=== PATIENT | female | born 1995 | race Caucasian/White ===

== ENCOUNTER 2019-12-29 19:34 | Emergency (ER) | payer OTHER ==
[2019-12-29] MEDS ORDERED: AMOXICILLIN TR/POT CLAVULANATE 875-125 MG TAB PO ONE (21:56)
--- NOTE | 2019-12-29 22:02 | ER Document Report ---
ED Animal Bite - General Chief Complaint: Dog Bite Stated Complaint: DOG BITE ON FACE Time Seen by Provider: 12/29/19 21:53 Notes: CHIEF COMPLAINT: Dog bite to face HPI: 24-year-old female presenting for evaluation of a dog bite to the right c heek and face. Dog was a relatives. States it did bite her on the face she sustained a small laceration to the right cheek and some abrasions. She states dog is up-to-date on its vaccinations and she is up-to-date on her tetanus vaccination. ROS: See HPI - all other systems were reviewed and are otherwise negative Constitutional: no fever or recent illness Eyes: no drainage, no blurred vision ENT: no runny nose Integumentary: + rash Allergy: no hives MEDICATIONS: I agree with the patient medications as charted by the RN. ALLERGIES: I agree with the allergies as charted by the RN. PAST MEDICAL HISTORY/PAST SURGICAL HISTORY: Reviewed and agree as charted by RN. SOCIAL HISTORY: Reviewed and agree as charted by RN. FAMILY HISTORY: No significant familial comorbid conditions directly related to patient complaint EXAM: Reviewed vital signs as charted by RN. CONSTITUTIONAL: Airway patent; alert and oriented and responds appropriately to questions. Well-appearing, well-nourished HEAD: Normocephalic, atraumatic EYES: PERRL; EOM intact; Conjunctivae clear, sclerae non-icteric ENT: Midface is stable without tenderness; normal nose; no bleeding; normal pharynx, normal voice, no stridor, no intraoral lacerations or dental trauma noted NECK: Trachea is midline; spine non-tender, no step-offs, good range of motion; no contusions or hematomas CARD: Normal symmetric pulses. Capillary refill less than 3 seconds RESP: Normal chest excursion with respiration; chest wall appears atraumatic without ecchymoses or crepitance ABD/GI: non-distended PELVIS: Stable, nontender BACK: The back appears atraumatic EXT: Normal ROM in all joints; no cyanosis, no effusions, no edema SKIN: Normal color for age and race; warm; dry; good turgor; superficial abrasions to the right cheek. There is a superficial 1 cm laceration on the medial aspect of the right cheek just superior to the oral crease, does not involve the mouth or lips. No visible or palpable foreign body NEURO: Moves all extremities equally; Motor and sensory function intact PSYCH: The patient's mood and manner are appropriate. MDM: 24-year-old female with a dog bite to the right face and cheek. There is a superficial 1 cm laceration to the cheek that is well approximated we will have nursing clean the wound area. Patient declines imaging, not concerned about a foreign body. We will not suture the wound given the dog bite as the area is well approximated will closed with a Steri-Strip so that the area may drain if it does become infected will place patient on Augmentin. This was all discussed with the patient he was in agreement with this plan Past Medical History - Social History Smoking Status: Unknown if Ever Smoked Family History: Reviewed & Not Pertinent Physical Exam - Vital signs Vitals: Temp Pulse Resp BP Pulse Ox 98.7 F 82 16 124/85 100 12/29/19 20:12 12/29/19 20:12 12/29/19 20:12 12/29/19 20:12 12/29/19 20:12 Course - Vital Signs Vital signs: Temp Pulse Resp BP Pulse Ox 98.7 F 82 16 124/85 100 12/29/19 20:12 12/29/19 20:12 12/29/19 20:12 12/29/19 20:12 12/29/19 20:12 Discharge - Discharge Clinical Impression: Dog bite of face Qualifiers: Encounter type: initial encounter Qualified Code(s): S01.85XA - Open bite of other part of head, initial encounter; W54.0XXA - Bitten by dog, initial encounter Laceration of cheek Qualifiers: Encounter type: initial encounter Laterality: right Qualified Code(s): S01.411A - Laceration without foreign body of right cheek and temporomandibular area, initial encounter Condition: Stable Disposition: HOME, SELF-CARE Additional Instructions: Take the Augmentin as prescribed. The wound areas can be cleaned with soap and water, do not pull on the Steri-Strip region this will come off over time on its own. Return for any redness discharge or swelling that suggests infection otherwise follow-up with PCP Prescriptions: Amoxicillin/Potassium Clav [Augmentin 875-125 Tablet] 1 tab PO Q12 #14 tablet
[2019-12-30 04:00] VITALS: BP 120/82
== END 2019-12-29 22:50 | disposition home or self-care (01) ==
LOC: ER 19:34
DX: S01.85XA Open bite of other part of head, initial encounter (principal); S01.411A Laceration without foreign body of right cheek and temporomandibular area, initial encounter; W54.0XXA Bitten by dog, initial encounter
CPT/HCPCS: 99283; J3490